=== PATIENT | male | born 1950 | race Caucasian/White ===

== ENCOUNTER 2016-12-03 06:50 | Day surgery (SDC) | payer OTHER ==
[~2016-12-03] VITALS: Ht 190.5 cm; Wt 110.0 kg
[2016-12-03] VITALS (28 sets, daily range): BP systolic 123–171; BP diastolic 62–91; PULSE 52–80; RESP 10–33; Ht 190.5 cm; Wt 110.0 kg
[2016-12-03] MEDS ORDERED: METO50TA16 PO (07:15)
[2016-12-03] MEDS ORDERED: MELO7.5O PO (07:15)
[2016-12-03] MEDS ORDERED: HYDR12.58 PO (07:15)
[2016-12-03] MEDS ORDERED: SILD50TA36 PO (07:15)
[2016-12-03] MEDS ORDERED: METH500T8 PO (07:15)
[2016-12-03] MEDS ORDERED: LOSA50TA6 PO (07:15)
[2016-12-03] MEDS ORDERED: FLUT16SP17 NASAL (07:15)
[2016-12-03] MEDS ORDERED: LIDOCAINE 1% (MDV) 20 ML INJ ONE (07:27)
[2016-12-03] MEDS ORDERED: HEPARIN 1000 UNITS/ML 10 ML INJ ONE ×3 (07:27→08:06)
[2016-12-03] MEDS ORDERED: IODIXANOL LOCM 100 ML BTL ONE (07:27)
[2016-12-03] MEDS ORDERED: NITROGLYCERIN (IC) 100 MCG/ML INJ ONE (07:28)
[2016-12-03] MEDS ORDERED: VERAPAMIL 5 MG INJ ONE (07:28)
[2016-12-03] MEDS ORDERED: FENTAnyl 50 MCG/ML VIAL ONE (07:28)
[2016-12-03] MEDS ORDERED: MIDAZOLAM 1 MG/ML 2 ML INJ ONE (07:28)
[2016-12-03] MEDS ORDERED: SOD CHLORIDE 0.9% 1,000 ML IV SCH (08:35)
--- NOTE | 2016-12-03 08:42 | OPR ---
Date/Time of Note Date/Time of Note DATE: 12/03/16 TIME: 08:37 Operative Report Free Text/Dictation Procedure Date:12/03/2016 Procedures Performed: 1)Left heart catheterization with selective left and right coronary angiography. Pre-operative Diagnosis:NSTEMI Post-operative Diagnosis:NSTEMI with nonobstructive CAD Indications: 66 yo M with NSTEMI (trop 1.6) after sustaining anaphylactic reaction to vancomycin. EF normal. Description of Procedure: After informed consent, the patient was brought to the cardiac catheterization lab. The procedure site was prepped and draped in usual manner. The patient was premedicated with versed 1 mg and fentanyl 50 mcg. 2mL lidocaine was injected into the right wrist. Next using the posterior wall technique, the 6/ 5 kazakh sheath was inserted into the right radial artery. Next using the JL3.5 and JR4, selective angiography of the left and right coronary arteries were obtained. The pigtail was then advanced into the ventricle and hemodynamics obtained. Left ventricle angiography was not obtained. Next all equipment was removed and hemostasis was obtained by TR band. Findings: Anatomy/Hemodynamics: Overall sluggish coronary flow Left main:luminal irregularities LAD:mid 20% Diagonal:normal Circumflex:luminal irregularities Obtuse marginal:luminal irregularities RCA:mid 20% PDA:luminal irregularities PLV:luminal irregularities LV angiography:not done LV-Ao: ~15 mmHg peak-peak gradient LVEDP:22 mmHg. Contrast used:25 mL Fluoroscopy time:3.3 min Assessment: NSTEMI Nonobstructive mild CAD Plan: -medical management with ASA, statin (may consider plavix but likely had vasospasm from epinephrine and not plaque rupture) -HTN control -transfer back to [facility] -possible d/c home today ELIEZER GREENBERG Dec 03, 2016 08:42
[2016-12-03] MEDS ORDERED: morphine 2 MG INJ IV PRN (09:00)
[2016-12-03] MEDS ORDERED: hydrALAzine 20 MG INJ IV PRN (09:14)
== END 2016-12-03 11:43 | disposition home or self-care (01) ==
LOC: SDS 06:50
PROVIDERS: ATTEND Internal Medicine Interventional Cardiology
DX: I21.4 Non-ST elevation (NSTEMI) myocardial infarction (principal); I25.10 Atherosclerotic heart disease of native coronary artery without angina pectoris; I10 Essential (primary) hypertension
CPT/HCPCS: 93458; C1769; C1887; J1644; J2250; J3010; Q9967; J0360